=== PATIENT | female | born 1960 | race Caucasian/White ===

== ENCOUNTER → 2016-11-22 | Outpatient (CLI) | payer BC | END | disposition home or self-care (01) | LOC: CDC 11:34 | DX: Z01.810 Encounter for preprocedural cardiovascular examination (principal); E66.01 Morbid (severe) obesity due to excess calories | CPT/HCPCS: 93000 ==

== ENCOUNTER → 2016-11-30 | Outpatient (CLI) | payer BC ==
[~2016-11-30] VITALS: Ht 158.8 cm; Wt 102.0 kg
[~2016-11-30] MED LIST: ECHINAC-GOLDEN1 EACH PO; FISH OIL 1,0001 EA10 PO; FLEXERIL10 MG PO; FOLIC ACID1 MG PO; GINGER ROOT550 MG PO; KLONOPIN0.5 M1 PO; LAMICTAL100 MG PO; LIDODERM 5% P1 PATCH TD; MAGNESIUM100 MG PO; ONE DAILY FOR1 EAC3 PO; SINEQUAN10 MG PO; SUPER-D3+ SOFT1 EACH PO; TURMERIC500 M1 PO; ULTRAM50 MG PO; VOLTAREN50 MG PO; WELLBUTRIN SR150 MG PO
== END | disposition home or self-care (01) ==
LOC: AMB 12:10
PROC: 0DJ08ZZ Inspection of Upper Intestinal Tract, Via Natural or Artificial Opening Endoscopic (ICD-10-PCS; principal; 2016-11-30)
DX: K29.70 Gastritis, unspecified, without bleeding (principal); K21.9 Gastro-esophageal reflux disease without esophagitis; G47.30 Sleep apnea, unspecified; F41.8 Other specified anxiety disorders; Z79.899 Other long term (current) drug therapy; Z88.2 Allergy status to sulfonamides; Z83.3 Family history of diabetes mellitus; Z82.49 Family history of ischemic heart disease and other diseases of the circulatory system
CPT/HCPCS: J2405